=== PATIENT | male | born 1950 | race African-American/Black ===

== ENCOUNTER 2017-04-18 16:50 | Inpatient (IN) | payer OTHER ==
--- NOTE | 2017-04-18 17:26 | DR.H&P ---
H&P - History & Physical for Day of: H&P Date: 04/18/17 - Chief Complaint Chief Complaint: Cough and Congestion, multiple episodes of passing out, intractable pelvic, back and leg pain. - Allergies Allergies/Adverse Reactions: Allergies Allergy/AdvReac Type Severity Reaction Status Date / Time Penicillins Allergy Verified 04/18/17 17:18 tramadol Allergy Verified 04/18/17 17:18 - History of Present Illness History of Present Illness: The patient is a 66-year-old black male who presents to the clinic with complaint of cough and congestion with low-grade fever. States that he was recently in the emergency room name and was told he had pneumonia. Patient was hospitalized in January with pneumonia and stayed for 7 days. Patient states he does get short of breath with simple exertion. States he was told by the hospital to see the pattern worker but they have to set that up. Patient states that he is having episodes of syncope. States he will be standing and then he will pass out. Does have a history of A. fib. states that he has injured his pelvis in his fals and is having excruciating pain that she cannot get relief with his current medications are fentanyl and Romney. They are agreeable for hospital admission. - Past Medical History Past Medical History: Anxiety, Diabetes, Dyslipidemia, GERD, Hypertension Additional Medical History: ATRIAL FIBRILLATION, DDD LUMBAR SPINE WITH HERNATION , LUMBAR RADICULOPATHY, TIA, PVD - Past Surgical History Surgical History: Appendectomy Additional Surgical History: COLONSCOPY - Social History Does patient currently use any type of tobacco product: No Have you used tobacco products in the last 12 months: No Type of Tobacco Use: None Does any household member use tobacco: No Alcohol Use: None Drug Use: None - Review of Systems Constitutional: Fever, Weakness, Malaise Eyes: No Symptoms Reported ENT: No Symptoms Reported Respiratory: Cough, Shortness of Breath, SOB with Excertion, Sputum Cardiovascular: No Symptoms Reported Gastrointestinal: No Symptoms Reported Genitourinary: No Symptoms Reported Musculoskeletal: Back Pain, Leg Pain Skin: No Symptoms Reported Neurological: No Symptoms Reported Oriented: Normal, Time, Person, Place Eyes: Normal Ear: Normal Nose: Normal Throat: Normal Respiratory: Diminished Throughout, SRAVANTHI Rhonchi Cardiovascular: Normal : Normal Auscultation: Bowel Sounds: Normal Palpation: Normal Tenderness: Normal Skin: Normal, Other (PALE) Musculoskeletal: Leg, Back:Lumbar, Tender, Motor Deficit, Instability Psychiatric: Normal Mood Description: Calm Affect: Normal Speech Pattern: Clear - Assessment/Plan (1) Acute bronchitis Qualifiers: Bronchitis organism: B Status: Acute Plan: CXR, LEVAQUIN, LABS, NEBS (2) Syncope and collapse Status: Acute Plan: CT HEAD, O2 SATS, NEURO CHECKS (3) Intractable low back pain Status: Acute Plan: MORPHINE, MRI LUMBAR
[2017-04-18] MEDS ORDERED: TUSSIONEX PENNKINETIC SUSP PO PRN (18:22)
[2017-04-18] MEDS: MORPHINE SULFATE INJ 2 MG IVP PRN ×2 (19:13→23:23)
[2017-04-18 19:21] LABS: BASOPHILS % (AUTO) 0.3 % (0.2-1.0); EOSINOPHILS # (AUTO) 0.1 x10^3/uL (0.0-0.2); EOSINOPHILS % (AUTO) 1.2 % (0.9-2.9); HEMOGLOBIN 10.3 g/dL (13.5-18.0); LYMPHOCYTES # (AUTO) 1.9 X10^3/uL (1.3-2.9); LYMPHOCYTES % (AUTO) 24.5 % (21.0-51.0); MEAN CORPUSCULAR HEMOGLOBIN 26.6 pg (27.0-34.0); MEAN CORPUSCULAR HGB CONC 33.1 g/dL (33.0-35.0); MEAN CORPUSCULAR VOLUME 80.4 fL (80.0-100.0); MEAN PLATELET VOLUME 9.1 fL (7.4-11.0); MONOCYTES # (AUTO) 0.7 x10^3/uL (0.3-0.8); MONOCYTES % (AUTO) 9.8 % (0.0-13.0); NEUTROPHILS # (AUTO) 4.9 x10^3/uL (2.2-4.8); NEUTROPHILS % (AUTO) 64.2 % (42.0-75.0); PLATELET COUNT 276 X10^3/uL (150.0-450.0); RED BLOOD COUNT 3.86 X10^6/uL (4.7-6.0); RED CELL DISTRIBUTION WIDTH 15.5 % (11.6-16.5); WHITE BLOOD COUNT 7.6 X10^3/uL (3.6-10.0)
[2017-04-18 19:34] LABS: ALBUMIN 3.3 g/dL (3.4-5.0); CALCIUM 8.1 mg/dL (8.5-10.1); CARBON DIOXIDE 28.4 mmol/L (21-32); COR CA(FOR HYPOALB) 8.7 mg/dL (8.5-10.1); CREATININE 1.61 mg/dL (0.70-1.30); TOTAL PROTEIN 7.3 g/dL (6.4-8.2)
[2017-04-18] MEDS ORDERED: NS 1/2 1000 ML IV 1,000 ML IV ONE (19:51)
[2017-04-18] MEDS: LEVAQUIN PREMIX IV 750 MG 750 MG/150 ML BAG IV SCH (19:57)
[2017-04-18] MEDS: NS 1/2 1000 ML IV 1,000 ML IV SCH (19:57)
[2017-04-18] MEDS ORDERED: PROVENTIL NEB TX 0.083% 2.5MG/ 3ML NEB PRN (20:04)
[2017-04-18 20:09] LABS: BILIRUBIN,URINE NEGATIVE (NEGATIVE); BLOOD/HEMOGLOBIN,URINE NEGATIVE (NEGATIVE); GLUCOSE, URINE 4+ (NEGATIVE); KETONES,URINE NEGATIVE (NEGATIVE); LEUKOCYTE ESTERASE ,URINE NEGATIVE (NEGATIVE); NITRITES,URINE NEGATIVE (NEGATIVE); PROTEIN,URINE NEGATIVE (NEGATIVE); UROBILINOGEN,URINE NORMAL (NORMAL)
[2017-04-18 20:27] LABS: APPEARANCE,URINE CLEAR (CLEAR); BACTERIA,URINE NEGATIVE /HPF (NEGATIVE); COLOR,URINE YELLOW (YELLOW); RBC,URINE 0-2 /HPF (NEGATIVE); SQUAMOUS EPITHELIAL CELL,UR NEGATIVE /HPF (NEGATIVE)
[2017-04-18] MEDS ORDERED: ZANAFLEX PO ONE (20:35)
[2017-04-18] MEDS: ROBITUSSIN DM PO SCH (20:57)
[2017-04-18] MEDS: ZITHROMAX INJ 500 MG VIAL 500 MG in NS 250 ML IV 250 ML IV SCH (20:57)
[2017-04-18] MEDS: NORCO 10/325 TAB PO PRN (20:57)
[2017-04-18] MEDS: SOLU-Medrol 125 MG VIAL IVP SCH (21:01)
[2017-04-19] MEDS: PROVENTIL NEB TX 0.083% 2.5MG/ 3ML NEB SCH ×4 (00:34→16:18)
[2017-04-19] MEDS: MORPHINE SULFATE INJ 2 MG IVP PRN ×3 (03:44→23:13)
[2017-04-19] MEDS: ZANAFLEX PO PRN ×3 (03:45→19:04)
[2017-04-19] MEDS: NORCO 10/325 TAB PO PRN ×3 (05:44→19:04)
[2017-04-19] MEDS: SOLU-Medrol 125 MG VIAL IVP SCH ×3 (05:44→23:12)
[2017-04-19] MEDS: HumuLIN R SUBCUT PRN ×4 (05:45→20:10)
--- NOTE | 2017-04-19 06:00 | RAD ---
HISTORY: Bronchitis Study: Chest one view Comparison: None Findings: The trachea is midline. The cardiac silhouette is unremarkable. The lungs are clear without focal infiltrate or effusion. The bony thorax is unremarkable. IMPRESSION: 1. No acute cardiopulmonary disease. Reported By:
--- NOTE | 2017-04-19 06:03 | CT ---
HISTORY: Congestion Study: CT chest without contrast Comparison: None Technique: Axial non contrast images with coronal and sagittal reformats. Dose reduction procedures were used with MA/kv adjusted for body size. Findings: Examination of the mediastinum demonstrated a right thyroid lobe nodule for which further evaluation with thyroid sonography is recommended. No mediastinal masses, enlarged lymphadenopathy, or enlarge d hilar adenopathy is identified. Coronary artery calcifications are present. No pleural effusions a re identified. No chest wall or axillary abnormality is identified. Those portions of the upper abdo uri organs are within normal limits with the exception of a 2 centimeter left adrenal nodule for w hich further evaluation with adrenal protocol CT with and without contrast is recommended.3 examinat ion of the lung rene demonstrated no significant nodules, alveolar infiltrates, areas of consolida tion, masses, or bronchiectasis is identified. There is mild peribronchial thickening consistent wit h bronchitis which could be acute, chronic, or both. IMPRESSION: Mild peribronchial thickening consistent with bronchitis which could be acute, chronic, or both. 2 centimeter left adrenal nodule which should be further evaluated with adrenal protocol CT with and without contrast Right thyroid nodule which should be further evaluated with sonography Reported By:
--- NOTE | 2017-04-19 06:08 | CT ---
HISTORY: Right hip pain Study: CT pelvis without contrast Comparison: None Technique: Axial non contrast images with coronal and sagittal reformats. Dose reduction procedures were used with MA/kv adjusted for body size. Findings: Bilateral facet arthropathy is present at L5-S1. There is bilateral SI joint degenerative joint dise ase. The sacrum is intact. The pelvic bones are intact. The hip joints are bilaterally intact. The p roximal femurs are bilaterally intact. No pelvic soft tissue abnormality is identified. No periartic ular soft tissue abnormality is identified. IMPRESSION: No fractures identified Bilateral SI joint degenerative joint disease Bilateral facet degenerative joint disease L5-S1 Reported By:
[2017-04-19] MEDS: LEVAQUIN PREMIX IV 750 MG 750 MG/150 ML BAG IV SCH (08:17)
[2017-04-19] MEDS: ZITHROMAX INJ 500 MG VIAL 500 MG in NS 250 ML IV 250 ML IV SCH (08:18)
[2017-04-19] MEDS: ROBITUSSIN DM PO SCH ×4 (08:18→20:03)
--- NOTE | 2017-04-19 13:02 | MRI ---
HISTORY: Low back pain, right radiculopathy Study: MRI lumbar spine without contrast Comparison: None Technique: Multiplanar multi-sequence MRI of the lumbar spine was obtained. Sagittal T1, sagittal T 2, and stir weighted images, axial T1, and axial T2 images were obtained. Findings: The lumbar spine demonstrates normal alignment with the expected signal characteristics of the bone marrow. The conus of the cord terminates normally. T12 -- L1: No evidence for compressive disc disease. The neural foramina are patent. The joints are normal. L1 -- L2: No evidence for compressive disc disease. The neural foramina are patent. The joints are n ormal. L2 -- L3: No evidence for compressive disc disease. The neural foramina are patent. The joints are n ormal. L3 -- L4: No evidence for compressive disc disease. The neural foramina are patent. Mild bilateral f acet arthropathy is present. L4 -- L5: Circumferential disk bulging contributes along with ligamentous hypertrophy facet arthropa thy and pedicular shortening to a significant spinal stenosis with lateral recess and foraminal narr owing of a significant degree bilaterally. L5 -- S1: No evidence for compressive disc disease. The neural foramina are patent. The joints are n ormal. IMPRESSION: As above Reported By:
[2017-04-19] MEDS ORDERED: ASPIRIN 81 MG CHEWTAB PO SCH (16:00)
[2017-04-19] MEDS ORDERED: GLUCOPHAGE ONE (16:38)
[2017-04-19] MEDS ORDERED: CLARITIN ONE (16:39)
[2017-04-19] MEDS ORDERED: ASPIRIN EC 81 MG PO ONE (16:39)
[2017-04-19] MEDS ORDERED: ZOLOFT PO ONE ×2 (16:40→20:01)
[2017-04-19] MEDS: GLUCOPHAGE PO SCH (16:50)
[2017-04-19] MEDS: ZOLOFT PO SCH ×2 (16:50→20:03)
[2017-04-19] MEDS: LYRICA CAP 100 MG PO SCH ×2 (16:54→20:03)
[2017-04-19] MEDS ORDERED: PLAVIX PO SCH (17:00)
[2017-04-19] MEDS ORDERED: COZAAR PO SCH (17:00)
[2017-04-19] MEDS ORDERED: FERROUS SULFATE PO SCH (17:00)
[2017-04-19] MEDS ORDERED: CLARITIN PO SCH (17:00)
[2017-04-19] MEDS ORDERED: ASPIRIN EC 81 MG PO SCH (17:00)
[2017-04-19] MEDS: CHECK PATCH XX SCH ×2 (17:00→20:04)
[2017-04-19] MEDS ORDERED: ZOFRAN SYRUP 4 MG UDC ONE (17:32)
[2017-04-19] MEDS ORDERED: ZOFRAN SYRUP 4 MG UDC PO PRN (17:34)
[2017-04-19] MEDS: MICRO K EXTEN CAP 10 MEQ PO SCH (17:38)
[2017-04-19] MEDS: LIPITOR TAB 40 MG PO SCH (17:39)
--- NOTE | 2017-04-19 17:41 | US ---
ULTRASOUND OF THE THYROID CLINICAL INDICATION: Thyroid nodules COMPARISON: None PROCEDURE: Grayscale and color images of the thyroid was obtained. Findings: Isthmus: Isthmus measures 3 mm. Right thyroid: Right thyroid lobe measures 3.2 x 2.6 x 2.0 cm. Mixed cystic and solid nodule measuri ng 2.0 x 2.4 cm. Left thyroid: Left thyroid lobe measures 4.2 x 1.3 x 1.7 cm. No suspicious nodules. IMPRESSION: 1. Mixed cystic and solid right thyroid nodule which meets criteria for FNA biopsy. [email or web address].[email or web address]/doi/[email or web address] Reported By:
[2017-04-19] MEDS ORDERED: NS 1/2 1000 ML IV 1,000 ML IV ONE (17:51)
[2017-04-19] MEDS: NS 1/2 1000 ML IV 1,000 ML IV SCH ×2 (17:56→23:18)
[2017-04-19] MEDS: SNACK - Diabetic Appropriate PO SCH (20:03)
[2017-04-19] MEDS ORDERED: SINGULAIR TAB 10 MG PO SCH (21:00)
[2017-04-19] MEDS ORDERED: PATIENT'S HOME MEDICATION (Ondansetron Hcl [Ondansetron Hcl] 1 TAB) PO PRN (22:55)
[2017-04-19] MEDS ORDERED: GLUCOPHAGE PO SCH (23:00)
[2017-04-19] MEDS ORDERED: ZOLOFT PO SCH (23:00)
[2017-04-19] MEDS ORDERED: LYRICA CAP 150 MG PO SCH (23:00)
[2017-04-19] MEDS: PLAVIX PO SCH (23:36)
[2017-04-19] MEDS: COZAAR PO SCH (23:42)
[2017-04-19] MEDS: ZANTAC PO SCH (23:44)
[2017-04-20] MEDS: PROVENTIL NEB TX 0.083% 2.5MG/ 3ML NEB SCH ×3 (00:37→12:13)
[2017-04-20] MEDS: ZOFRAN TAB 4 MG SL PRN ×2 (02:37→20:31)
[2017-04-20] MEDS: NORCO 10/325 TAB PO PRN ×3 (02:37→17:33)
[2017-04-20] MEDS: ZANAFLEX PO PRN ×3 (02:37→17:33)
[2017-04-20 04:27] LABS: BASOPHILS % (AUTO) 0.1 % (0.2-1.0); HEMATOCRIT 28.4 % (42.0-54.0); HEMOGLOBIN 9.5 g/dL (13.5-18.0); LYMPHOCYTES # (AUTO) 0.8 X10^3/uL (1.3-2.9); LYMPHOCYTES % (AUTO) 8.4 % (21.0-51.0); MEAN CORPUSCULAR HEMOGLOBIN 26.7 pg (27.0-34.0); MEAN CORPUSCULAR HGB CONC 33.4 g/dL (33.0-35.0); MEAN CORPUSCULAR VOLUME 80.1 fL (80.0-100.0); MEAN PLATELET VOLUME 9.4 fL (7.4-11.0); MONOCYTES # (AUTO) 0.4 x10^3/uL (0.3-0.8); MONOCYTES % (AUTO) 4.7 % (0.0-13.0); NEUTROPHILS # (AUTO) 8.3 x10^3/uL (2.2-4.8); NEUTROPHILS % (AUTO) 86.8 % (42.0-75.0); PLATELET COUNT 267 X10^3/uL (150.0-450.0); RED BLOOD COUNT 3.54 X10^6/uL (4.7-6.0); RED CELL DISTRIBUTION WIDTH 15.6 % (11.6-16.5); WHITE BLOOD COUNT 9.6 X10^3/uL (3.6-10.0)
[2017-04-20 04:37] LABS: ALANINE AMINOTRANSFERASE 18 Units/L (12-78); ALBUMIN 3.2 g/dL (3.4-5.0); ALKALINE PHOSPHATASE 107 Units/L (46-116); ASPARTATE AMINO TRANSFERASE 18 Units/L (15-37); BLOOD UREA NITROGEN 26 mg/dL (7-18); CALCIUM 8.4 mg/dL (8.5-10.1); CARBON DIOXIDE 23.7 mmol/L (21-32); CHLORIDE 106 mmol/L (98-107); COR NA(FOR HYPERGLY) 144 mmol/L (136-145); CREATININE 1.31 mg/dL (0.70-1.30); GLUCOSE 289 mg/dL (65-99); SODIUM 139 mmol/L (136-145); TOTAL PROTEIN 7.1 g/dL (6.4-8.2); eGFR BLACK RACES > 60 (>60); eGFR NON BLACK RACES 59 (>60)
[2017-04-20] MEDS ORDERED: GLUCOPHAGE ONE ×2 (05:36→17:26)
[2017-04-20] MEDS ORDERED: NS 1/2 1000 ML IV 1,000 ML IV ONE (05:38)
[2017-04-20] MEDS: MORPHINE SULFATE INJ 2 MG IVP PRN ×3 (05:43→20:18)
[2017-04-20] MEDS: NS 1/2 1000 ML IV 1,000 ML IV SCH ×2 (05:43→20:54)
[2017-04-20] MEDS: FERROUS SULFATE PO SCH ×3 (05:44→21:12)
[2017-04-20] MEDS: HumuLIN R SUBCUT PRN ×4 (05:44→21:12)
[2017-04-20] MEDS: SOLU-Medrol 125 MG VIAL IVP SCH ×3 (05:44→21:12)
[2017-04-20] MEDS: GLUCOPHAGE PO SCH ×2 (06:07→17:25)
[2017-04-20] MEDS ORDERED: ASPIRIN EC 81 MG PO SCH (09:00)
[2017-04-20] MEDS ORDERED: PATIENT'S HOME MEDICATION (Potassium Chloride [Klor-Con 10] 1 TAB) PO SCH (09:00)
[2017-04-20] MEDS ORDERED: ZOLOFT PO ONE ×2 (09:05→19:58)
[2017-04-20] MEDS: LYRICA CAP 100 MG PO SCH ×2 (09:24→20:17)
[2017-04-20] MEDS: ZANTAC PO SCH (09:24)
[2017-04-20] MEDS: ROBITUSSIN DM PO SCH ×4 (09:25→20:19)
[2017-04-20] MEDS: COZAAR PO SCH (09:25)
[2017-04-20] MEDS: LIPITOR TAB 40 MG PO SCH (09:25)
[2017-04-20] MEDS: CLARITIN PO SCH (09:25)
[2017-04-20] MEDS: ASPIRIN EC 81 MG PO SCH (09:25)
[2017-04-20] MEDS: MICRO K EXTEN CAP 10 MEQ PO SCH (09:25)
[2017-04-20] MEDS: ZOLOFT PO SCH ×2 (09:25→20:18)
[2017-04-20] MEDS: PLAVIX PO SCH (09:26)
[2017-04-20] MEDS: ZITHROMAX INJ 500 MG VIAL 500 MG in NS 250 ML IV 250 ML IV SCH (09:26)
[2017-04-20] MEDS: LASIX PO SCH (09:26)
[2017-04-20] MEDS: LEVAQUIN PREMIX IV 750 MG 750 MG/150 ML BAG IV SCH (09:27)
[2017-04-20] MEDS: CHECK PATCH XX SCH ×2 (09:33→20:19)
[2017-04-20] MEDS: VISTARIL PO PRN ×2 (12:04→20:17)
[2017-04-20] MEDS: XOPENEX 1.25 MG/3 ML NEBULE NEB SCH (17:19)
[2017-04-20] MEDS: DESYREL PO PRN (20:18)
[2017-04-20] MEDS: SNACK - Diabetic Appropriate PO SCH (20:19)
[2017-04-20] MEDS: SINGULAIR TAB 10 MG PO SCH (20:20)
[2017-04-20] MEDS ORDERED: PATIENT'S HOME MEDICATION (Atorvastatin Calcium [Atorvastatin Calcium] 1 TAB) PO SCH (21:00)
[2017-04-21] MEDS: XOPENEX 1.25 MG/3 ML NEBULE NEB SCH ×5 (00:38→20:59)
[2017-04-21] MEDS: NORCO 10/325 TAB PO PRN ×4 (01:15→22:12)
[2017-04-21] MEDS: ZANAFLEX PO PRN ×4 (01:17→22:12)
[2017-04-21] MEDS ORDERED: NS 1/2 1000 ML IV 1,000 ML IV ONE ×2 (02:57→20:00)
[2017-04-21] MEDS: NS 1/2 1000 ML IV 1,000 ML IV SCH ×3 (03:04→20:10)
[2017-04-21] MEDS ORDERED: GLUCOPHAGE ONE ×2 (05:38→16:17)
[2017-04-21] MEDS: SOLU-Medrol 125 MG VIAL IVP SCH ×3 (05:44→21:00)
[2017-04-21] MEDS: VISTARIL PO PRN ×3 (05:44→20:10)
[2017-04-21] MEDS: HumuLIN R SUBCUT PRN ×4 (05:44→20:12)
[2017-04-21] MEDS: FERROUS SULFATE PO SCH ×3 (05:44→21:01)
[2017-04-21 05:46] LABS: BASOPHILS % (AUTO) 0.2 % (0.2-1.0); HEMATOCRIT 28.6 % (42.0-54.0); HEMOGLOBIN 9.6 g/dL (13.5-18.0); LYMPHOCYTES % (AUTO) 10.8 % (21.0-51.0); MEAN CORPUSCULAR HGB CONC 33.4 g/dL (33.0-35.0); MEAN CORPUSCULAR VOLUME 80.9 fL (80.0-100.0); MEAN PLATELET VOLUME 9.2 fL (7.4-11.0); MONOCYTES # (AUTO) 0.7 x10^3/uL (0.3-0.8); MONOCYTES % (AUTO) 7.1 % (0.0-13.0); NEUTROPHILS # (AUTO) 7.8 x10^3/uL (2.2-4.8); NEUTROPHILS % (AUTO) 81.9 % (42.0-75.0); PLATELET COUNT 259 X10^3/uL (150.0-450.0); RED BLOOD COUNT 3.53 X10^6/uL (4.7-6.0); RED CELL DISTRIBUTION WIDTH 15.7 % (11.6-16.5); WHITE BLOOD COUNT 9.5 X10^3/uL (3.6-10.0)
[2017-04-21 05:51] LABS: ALANINE AMINOTRANSFERASE 19 Units/L (12-78); ALBUMIN 3.2 g/dL (3.4-5.0); ALKALINE PHOSPHATASE 113 Units/L (46-116); ASPARTATE AMINO TRANSFERASE 20 Units/L (15-37); BLOOD UREA NITROGEN 27 mg/dL (7-18); CALCIUM 8.3 mg/dL (8.5-10.1); CARBON DIOXIDE 25.4 mmol/L (21-32); CHLORIDE 107 mmol/L (98-107); COR CA(FOR HYPOALB) 8.9 mg/dL (8.5-10.1); COR NA(FOR HYPERGLY) 143 mmol/L (136-145); CREATININE 1.37 mg/dL (0.70-1.30); GLUCOSE 256 mg/dL (65-99); SODIUM 139 mmol/L (136-145); eGFR BLACK RACES > 60 (>60); eGFR NON BLACK RACES 56 (>60)
[2017-04-21] MEDS: MORPHINE SULFATE INJ 2 MG IVP PRN ×3 (06:02→18:39)
[2017-04-21] MEDS: GLUCOPHAGE PO SCH ×2 (06:02→16:24)
[2017-04-21] MEDS ORDERED: ZOLOFT PO ONE ×2 (08:33→19:58)
[2017-04-21] MEDS: MICRO K EXTEN CAP 10 MEQ PO SCH (08:40)
[2017-04-21] MEDS: LYRICA CAP 100 MG PO SCH ×2 (08:40→20:11)
[2017-04-21] MEDS: ZOLOFT PO SCH ×2 (08:40→20:11)
[2017-04-21] MEDS: CLARITIN PO SCH (08:40)
[2017-04-21] MEDS: PLAVIX PO SCH (08:41)
[2017-04-21] MEDS: ASPIRIN EC 81 MG PO SCH (08:41)
[2017-04-21] MEDS: LIPITOR TAB 40 MG PO SCH (08:41)
[2017-04-21] MEDS: ZANTAC PO SCH (08:41)
[2017-04-21] MEDS: LASIX PO SCH (08:41)
[2017-04-21] MEDS: COZAAR PO SCH (08:41)
[2017-04-21] MEDS: ZITHROMAX INJ 500 MG VIAL 500 MG in NS 250 ML IV 250 ML IV SCH (08:42)
[2017-04-21] MEDS: ROBITUSSIN DM PO SCH ×4 (08:42→20:11)
[2017-04-21] MEDS: LEVAQUIN PREMIX IV 750 MG 750 MG/150 ML BAG IV SCH (08:42)
[2017-04-21] MEDS: CHECK PATCH XX SCH ×2 (08:47→20:11)
[2017-04-21] MEDS: SNACK - Diabetic Appropriate PO SCH (20:11)
[2017-04-21] MEDS: ZOFRAN TAB 4 MG SL PRN (20:11)
[2017-04-21] MEDS: SINGULAIR TAB 10 MG PO SCH (20:11)
[2017-04-21] MEDS: DESYREL PO PRN (20:13)
[2017-04-21] MEDS: ROCEPHIN VIAL 1 GM 1 GM in NS 50 ML IV + SPIKE MINIBAG* 50 ML IV SCH (21:01)
[2017-04-21] MEDS: LOPRESSOR TAB 25 MG PO SCH (22:10)
[2017-04-22] MEDS: VISTARIL PO PRN ×3 (04:12→22:56)
[2017-04-22] MEDS: MORPHINE SULFATE INJ 2 MG IVP PRN ×3 (04:13→20:11)
[2017-04-22] MEDS: ZOFRAN TAB 4 MG SL PRN ×2 (04:17→20:08)
[2017-04-22 04:46] LABS: BASOPHILS % (AUTO) 0.1 % (0.2-1.0); HEMATOCRIT 29.8 % (42.0-54.0); HEMOGLOBIN 9.9 g/dL (13.5-18.0); LYMPHOCYTES # (AUTO) 1.1 X10^3/uL (1.3-2.9); LYMPHOCYTES % (AUTO) 10.5 % (21.0-51.0); MEAN CORPUSCULAR HGB CONC 33.3 g/dL (33.0-35.0); MEAN CORPUSCULAR VOLUME 81.1 fL (80.0-100.0); MEAN PLATELET VOLUME 9.3 fL (7.4-11.0); MONOCYTES % (AUTO) 9.3 % (0.0-13.0); NEUTROPHILS # (AUTO) 8.7 x10^3/uL (2.2-4.8); NEUTROPHILS % (AUTO) 80.1 % (42.0-75.0); PLATELET COUNT 254 X10^3/uL (150.0-450.0); RED BLOOD COUNT 3.68 X10^6/uL (4.7-6.0); RED CELL DISTRIBUTION WIDTH 15.5 % (11.6-16.5); WHITE BLOOD COUNT 10.9 X10^3/uL (3.6-10.0)
[2017-04-22 04:59] LABS: ALANINE AMINOTRANSFERASE 20 Units/L (12-78); ALBUMIN 3.1 g/dL (3.4-5.0); ALKALINE PHOSPHATASE 170 Units/L (46-116); ASPARTATE AMINO TRANSFERASE 19 Units/L (15-37); BLOOD UREA NITROGEN 29 mg/dL (7-18); CALCIUM 8.1 mg/dL (8.5-10.1); CARBON DIOXIDE 26.7 mmol/L (21-32); CHLORIDE 107 mmol/L (98-107); COR CA(FOR HYPOALB) 8.8 mg/dL (8.5-10.1); COR NA(FOR HYPERGLY) 143 mmol/L (136-145); CREATININE 1.35 mg/dL (0.70-1.30); GLUCOSE 266 mg/dL (65-99); SODIUM 139 mmol/L (136-145); TOTAL PROTEIN 6.8 g/dL (6.4-8.2); eGFR BLACK RACES > 60 (>60); eGFR NON BLACK RACES 57 (>60)
[2017-04-22] MEDS ORDERED: GLUCOPHAGE ONE ×2 (05:38→16:33)
[2017-04-22] MEDS: FERROUS SULFATE PO SCH ×3 (05:42→21:01)
[2017-04-22] MEDS: HumuLIN R SUBCUT PRN ×4 (05:42→21:01)
[2017-04-22] MEDS: NS 1/2 1000 ML IV 1,000 ML IV SCH ×3 (05:43→20:10)
[2017-04-22] MEDS: GLUCOPHAGE PO SCH ×2 (06:05→16:46)
--- NOTE | 2017-04-22 06:58 | RAD ---
HISTORY: Bronchitis Study: Chest two-view Comparison: April 18, 2017 CT chest and plain film Findings: The heart is within normal limits in size. The erasto are normal. The lungs are free of acute alveolar infiltrates. No pleural effusions are identified. There is some subsegmental atelectasis in the lef t lung base. No pleural effusions are identified. The bony thorax is unremarkable. IMPRESSION: Subsegmental atelectasis left lung base Reported By:
[2017-04-22] MEDS ORDERED: ZOLOFT PO ONE ×2 (07:33→19:57)
[2017-04-22] MEDS: SOLU-Medrol 40 MG VIAL IVP SCH ×2 (08:44→20:10)
[2017-04-22] MEDS: ROCEPHIN VIAL 1 GM 1 GM in NS 50 ML IV + SPIKE MINIBAG* 50 ML IV SCH (08:46)
[2017-04-22] MEDS: LYRICA CAP 100 MG PO SCH ×2 (08:48→20:08)
[2017-04-22] MEDS: CLARITIN PO SCH (08:48)
[2017-04-22] MEDS: ROBITUSSIN DM PO SCH ×4 (08:48→20:08)
[2017-04-22] MEDS: ASPIRIN EC 81 MG PO SCH (08:48)
[2017-04-22] MEDS: COZAAR PO SCH (08:48)
[2017-04-22] MEDS: ZANTAC PO SCH (08:49)
[2017-04-22] MEDS: MICRO K EXTEN CAP 10 MEQ PO SCH (08:49)
[2017-04-22] MEDS: ZOLOFT PO SCH ×2 (08:49→20:08)
[2017-04-22] MEDS: LASIX PO SCH (08:49)
[2017-04-22] MEDS: LOPRESSOR TAB 25 MG PO SCH ×2 (08:49→20:08)
[2017-04-22] MEDS: LIPITOR TAB 40 MG PO SCH (08:49)
[2017-04-22] MEDS: CHECK PATCH XX SCH ×2 (08:50→20:10)
[2017-04-22] MEDS: PLAVIX PO SCH (08:51)
[2017-04-22] MEDS: ZITHROMAX INJ 500 MG VIAL 500 MG in NS 250 ML IV 250 ML IV SCH ×2 (08:54→09:27)
[2017-04-22] MEDS: XOPENEX 1.25 MG/3 ML NEBULE NEB SCH ×4 (09:37→21:03)
[2017-04-22] MEDS ORDERED: NS 1/2 1000 ML IV 1,000 ML IV ONE (11:00)
[2017-04-22] MEDS: NORCO 10/325 TAB PO PRN ×3 (11:03→22:56)
[2017-04-22] MEDS: ZANAFLEX PO PRN ×3 (11:03→22:56)
--- NOTE | 2017-04-22 13:43 | PCM.PROG ---
Progress Note - Progress Note for Day of Date: 04/22/17 - Subjective Subjective: the patient is a 66-year-old black male who was admitted with acute bronchitis and intractable lower extremity numbness and lumbar spine pain. Patient sputum was positive for Escherichia coli, sensitive to IV antibiotics. Plan to continue IV antibiotics and respiratory therapy. Patient had diffuse rhonchi on exam this morning. Patient has a history of PAD, and is currently on Plavix. We plan to continue pain control for her lumbar spine pain and when bronchitis has stabilized we will recommend rehabilitation therapy at [facility] - Past Medical Family Social History Past Med/Fam/Surg Hx: No changes since H&P Allergies: Allergies Penicillins Allergy (Verified 04/18/17 17:18) tramadol Allergy (Verified 04/18/17 17:18) - Review of Systems ROS: No change since H&P - Vital Signs and I&O's Vital Signs: Temperature 97.1 F Pulse Rate [Right Brachial] 91 Pulse Rate [Left Radial] 94 Pulse Rate 86 Respiratory Rate 18 Blood Pressure [Right Arm] 155/84 Blood Pressure 132/72 O2 Sat by Pulse Oximetry 99 Intake and Output: Intake & Output 04/20/17 04/21/17 04/22/17 04/23/17 11:59 11:59 11:59 11:59 Intake Total 2753 3098 2458 Output Total 1500 1050 2100 Balance 1253 2048 358 - Physical Exam Oriented: Normal, Time, Person, Place Eyes: Normal Ear: Normal Nose: Normal Throat: Normal Respiratory: Rhonchi Cardiovascular: Normal : Normal Auscultation: Bowel Sounds: Normal Tenderness: Normal Skin: Normal, Other (PALE) Musculoskeletal: Leg, Back:Lumbar, Tender, Motor Deficit, Instability Psychiatric: Normal Mood Description: Calm Affect: Normal Speech Pattern: Clear, Appropriate - Laboratory and Diagnostics Result Diagrams: 04/22/17 04:25 04/22/17 04:25 Labs: 04/19/17 01:30 Sputum - Expectorated Sputum Sputum Culture - Final Escherichia Coli 04/19/17 01:30 Sputum - Expectorated Sputum - Final 04/18/17 18:40 Blood Blood Culture - Preliminary 04/18/17 18:35 Blood Blood Culture - Preliminary Laboratory WBC 10.9 X10^3/uL (3.6-10.0) H 04/22/17 04:25 RBC 3.68 X10^6/uL (4.7-6.0) L 04/22/17 04:25 Hgb 9.9 g/dL (13.5-18.0) L 04/22/17 04:25 Hct 29.8 % (42.0-54.0) L 04/22/17 04:25 MCV 81.1 fL (80.0-100.0) 04/22/17 04:25 MCH 27.0 pg (27.0-34.0) 04/22/17 04:25 MCHC 33.3 g/dL (33.0-35.0) 04/22/17 04:25 RDW 15.5 % (11.6-16.5) 04/22/17 04:25 Plt Count 254 X10^3/uL (150.0-450.0) 04/22/17 04:25 MPV 9.3 fL (7.4-11.0) 04/22/17 04:25 Neut % 80.1 % (42.0-75.0) H 04/22/17 04:25 Lymph % 10.5 % (21.0-51.0) L 04/22/17 04:25 [place] % 9.3 % (0.0-13.0) 04/22/17 04:25 Eos % 0.0 % (0.9-2.9) L 04/22/17 04:25 Baso % 0.1 % (0.2-1.0) L 04/22/17 04:25 Neut # 8.7 x10^3/uL (2.2-4.8) H 04/22/17 04:25 Lymph # 1.1 X10^3/uL (1.3-2.9) L 04/22/17 04:25 [place] # 1.0 x10^3/uL (0.3-0.8) H 04/22/17 04:25 Eos # 0.0 x10^3/uL (0.0-0.2) 04/22/17 04:25 Baso # 0.0 X10^3/uL (0.0-0.1) 04/22/17 04:25 Absolute Nucleated RBC 0.0 /100WBC 04/22/17 04:25 Sodium 139 mmol/L (136-145) 04/22/17 04:25 Corrected Sodium 143 mmol/L (136-145) 04/22/17 04:25 Potassium 4.3 mmol/L (3.5-5.1) 04/22/17 04:25 Chloride 107 mmol/L (98-107) 04/22/17 04:25 Carbon Dioxide 26.7 mmol/L (21-32) 04/22/17 04:25 BUN 29 mg/dL (7-18) H 04/22/17 04:25 Creatinine 1.35 mg/dL (0.70-1.30) H 04/22/17 04:25 Est GFR (MDRD) Af Amer > 60 (>60) 04/22/17 04:25 Est GFR (MDRD) Non-Af 57 (>60) L 04/22/17 04:25 Glucose 266 mg/dL (65-99) H 04/22/17 04:25 Calcium 8.1 mg/dL (8.5-10.1) L 04/22/17 04:25 Corrected Calcium 8.8 mg/dL (8.5-10.1) 04/22/17 04:25 Total Bilirubin 0.20 mg/dL (0.2-1.0) 04/22/17 04:25 AST 19 Units/L (15-37) 04/22/17 04:25 ALT 20 Units/L (12-78) 04/22/17 04:25 Alkaline Phosphatase 170 Units/L (46-116) H 04/22/17 04:25 Total Protein 6.8 g/dL (6.4-8.2) 04/22/17 04:25 Albumin 3.1 g/dL (3.4-5.0) L 04/22/17 04:25 Globulin 3.7 g/dL (2.5-4.5) 04/22/17 04:25 Albumin/Globulin Ratio 0.8 Ratio (1.1-2.1) L 04/22/17 04:25 Specimen Type Clean catch urine 04/18/17 19:09 Urine Color Yellow (YELLOW) 04/18/17 19:09 Urine Appearance Clear (CLEAR) 04/18/17 19:09 Urine pH 5.0 (5.0 - 8.0) 04/18/17 19:09 Ur Specific [place] 1.015 (1.000-1.030) 04/18/17 19:09 Urine Protein Negative (NEGATIVE) 04/18/17 19:09 Urine Glucose (UA) 4+ (NEGATIVE) 04/18/17 19:09 Urine Ketones Negative (NEGATIVE) 04/18/17 19:09 Urine Occult Blood Negative (NEGATIVE) 04/18/17 19:09 Urine Nitrite Negative (NEGATIVE) 04/18/17 19:09 Urine Bilirubin Negative (NEGATIVE) 04/18/17 19:09 Urine Urobilinogen Normal (NORMAL) 04/18/17 19:09 Ur Leukocyte Esterase Negative (NEGATIVE) 04/18/17 19:09 Urine RBC 0-2 /HPF (NEGATIVE) 04/18/17 19:09 Urine WBC 0-2 /HPF (NEGATIVE) 04/18/17 19:09 Ur Squamous Epith Cells Negative /HPF (NEGATIVE) 04/18/17 19:09 Urine Bacteria Negative /HPF (NEGATIVE) 04/18/17 19:09 Ur Culture Indicated? No/not indicated 04/18/17 19:09 - Plan (1) Acute bronchitis Status: Acute Qualifiers: Bronchitis organism: B Plan: reports improved sputum production this morning, continued diffuse rhonchi on exam. Plan to continue IV antibiotics and respiratory therapy (2) Hypertension Status: Acute Qualifiers: Hypertension type: H Plan: resume Lopressor 25 twice a day, continue losartan and blood pressure monitoring (3) Lumbosacral radiculopathy due to degenerative joint disease of spine Status: Acute Plan: continued low back pain, impaired gait and mobility. Plan to discharge to [facility] for physical therapy after resolution of bronchitis (4) Degenerative joint disease (DJD) of lumbar spine Status: Acute Qualifiers: Spinal osteoarthritis complication: S
[2017-04-22] MEDS: SINGULAIR TAB 10 MG PO SCH (20:08)
[2017-04-22] MEDS: DESYREL PO PRN (20:08)
[2017-04-22] MEDS: SNACK - Diabetic Appropriate PO SCH (20:10)
[2017-04-22] MEDS ORDERED: LOPRESSOR TAB 25 MG PO SCH (21:47)
[2017-04-23] MEDS ORDERED: NS 1/2 1000 ML IV 1,000 ML IV ONE ×2 (02:26→20:27)
[2017-04-23] MEDS: MORPHINE SULFATE INJ 2 MG IVP PRN ×3 (02:35→13:59)
[2017-04-23] MEDS: ZOFRAN TAB 4 MG SL PRN ×2 (02:36→20:15)
[2017-04-23 05:28] LABS: ALANINE AMINOTRANSFERASE 28 Units/L (12-78); ALBUMIN 3.4 g/dL (3.4-5.0); ALKALINE PHOSPHATASE 121 Units/L (46-116); ASPARTATE AMINO TRANSFERASE 27 Units/L (15-37); BLOOD UREA NITROGEN 31 mg/dL (7-18); CALCIUM 8.4 mg/dL (8.5-10.1); CARBON DIOXIDE 26.9 mmol/L (21-32); CHLORIDE 107 mmol/L (98-107); CREATININE 1.25 mg/dL (0.70-1.30); GLUCOSE 76 mg/dL (65-99); SODIUM 142 mmol/L (136-145); TOTAL PROTEIN 7.2 g/dL (6.4-8.2); eGFR BLACK RACES > 60 (>60); eGFR NON BLACK RACES > 60 (>60)
[2017-04-23] MEDS ORDERED: GLUCOPHAGE ONE ×2 (05:42→17:52)
[2017-04-23] MEDS: FERROUS SULFATE PO SCH ×3 (05:44→21:42)
[2017-04-23] MEDS: NORCO 10/325 TAB PO PRN ×2 (05:44→20:15)
[2017-04-23] MEDS: ZANAFLEX PO PRN ×3 (05:44→20:15)
[2017-04-23 05:46] LABS: BASOPHILS % (AUTO) 0.1 % (0.2-1.0); HEMATOCRIT 30.4 % (42.0-54.0); HEMOGLOBIN 10.1 g/dL (13.5-18.0); LYMPHOCYTES # (AUTO) 1.7 X10^3/uL (1.3-2.9); LYMPHOCYTES % (AUTO) 14.4 % (21.0-51.0); MEAN CORPUSCULAR HEMOGLOBIN 26.7 pg (27.0-34.0); MEAN CORPUSCULAR HGB CONC 33.4 g/dL (33.0-35.0); MEAN CORPUSCULAR VOLUME 80.1 fL (80.0-100.0); MEAN PLATELET VOLUME 9.4 fL (7.4-11.0); MONOCYTES # (AUTO) 1.1 x10^3/uL (0.3-0.8); MONOCYTES % (AUTO) 9.2 % (0.0-13.0); NEUTROPHILS # (AUTO) 9.2 x10^3/uL (2.2-4.8); NEUTROPHILS % (AUTO) 76.3 % (42.0-75.0); PLATELET COUNT 284 X10^3/uL (150.0-450.0); RED CELL DISTRIBUTION WIDTH 15.9 % (11.6-16.5)
[2017-04-23] MEDS: NS 1/2 1000 ML IV 1,000 ML IV SCH ×3 (05:48→20:27)
[2017-04-23] MEDS: GLUCOPHAGE PO SCH ×2 (06:09→17:56)
[2017-04-23] MEDS ORDERED: ZOLOFT PO ONE ×3 (08:10→20:20)
[2017-04-23] MEDS: ROCEPHIN VIAL 1 GM 1 GM in NS 50 ML IV + SPIKE MINIBAG* 50 ML IV SCH (08:17)
[2017-04-23] MEDS: LIPITOR TAB 40 MG PO SCH (08:18)
[2017-04-23] MEDS: LASIX PO SCH (08:18)
[2017-04-23] MEDS: COZAAR PO SCH (08:18)
[2017-04-23] MEDS: LOPRESSOR TAB 25 MG PO SCH ×2 (08:18→20:15)
[2017-04-23] MEDS: CLARITIN PO SCH (08:18)
[2017-04-23] MEDS: ASPIRIN EC 81 MG PO SCH (08:18)
[2017-04-23] MEDS: ZOLOFT PO SCH ×2 (08:19→20:22)
[2017-04-23] MEDS: CHECK PATCH XX SCH ×2 (08:19→20:16)
[2017-04-23] MEDS: MICRO K EXTEN CAP 10 MEQ PO SCH (08:19)
[2017-04-23] MEDS: ROBITUSSIN DM PO SCH ×4 (08:20→20:14)
[2017-04-23] MEDS: LYRICA CAP 100 MG PO SCH ×2 (08:21→20:14)
[2017-04-23] MEDS: PLAVIX PO SCH (08:21)
[2017-04-23] MEDS: ZANTAC PO SCH (08:27)
[2017-04-23] MEDS: VISTARIL PO PRN (08:27)
[2017-04-23] MEDS: XOPENEX 1.25 MG/3 ML NEBULE NEB SCH ×4 (09:02→21:11)
--- NOTE | 2017-04-23 10:18 | PCM.PROG ---
Progress Note - Progress Note for Day of Date: 04/23/17 - Subjective Subjective: the patient is a 66-year-old black male who was admitted with acute bronchitis and intractable lower extremity numbness and lumbar spine pain. Patient sputum was positive for Escherichia coli, sensitive to IV antibiotics. Plan to continue IV antibiotics and respiratory therapy. Patient had diffuse rhonchi on exam this morning. Consult resp for mucomyst [email or web address] has a history of PAD, and is currently on Plavix. Pts renal function in much improved from admission, will CTA lower extremities to r/o arterial occlusion We plan to continue pain control for her lumbar spine pain and when bronchitis has stabilized we will recommend rehabilitation therapy at [facility] - Past Medical Family Social History Past Med/Fam/Surg Hx: No changes since H&P Allergies: Allergies Penicillins Allergy (Verified 04/18/17 17:18) tramadol Allergy (Verified 04/18/17 17:18) - Review of Systems ROS: No change since H&P - Vital Signs and I&O's Vital Signs: Temperature 97.7 F Pulse Rate [Right Brachial] 81 Pulse Rate [Left Radial] 94 Pulse Rate 73 Respiratory Rate 15 Blood Pressure [Right Arm] 162/85 Blood Pressure 132/72 O2 Sat by Pulse Oximetry 99 Intake and Output: Intake & Output 04/20/17 04/21/17 04/22/17 04/23/17 11:59 11:59 11:59 11:59 Intake Total 2753 3098 2458 3535 Output Total 1500 1050 2100 1775 Balance 1253 2048 358 1760 - Physical Exam Oriented: Normal, Time, Person, Place Eyes: Normal Ear: Normal Nose: Normal Throat: Normal Respiratory: Rhonchi Cardiovascular: Normal : Normal Auscultation: Bowel Sounds: Normal Tenderness: Normal Skin: Normal, Other (PALE) Musculoskeletal: Leg, Back:Lumbar, Tender, Motor Deficit, Instability Psychiatric: Normal Mood Description: Calm Affect: Normal Speech Pattern: Clear, Appropriate - Laboratory and Diagnostics Result Diagrams: 04/23/17 04:45 04/23/17 04:45 Labs: 04/19/17 01:30 Sputum - Expectorated Sputum Sputum Culture - Final Escherichia Coli 04/19/17 01:30 Sputum - Expectorated Sputum - Final 04/18/17 18:40 Blood Blood Culture - Preliminary 04/18/17 18:35 Blood Blood Culture - Preliminary Laboratory WBC 12.0 X10^3/uL (3.6-10.0) H 04/23/17 04:45 RBC 3.80 X10^6/uL (4.7-6.0) L 04/23/17 04:45 Hgb 10.1 g/dL (13.5-18.0) L 04/23/17 04:45 Hct 30.4 % (42.0-54.0) L 04/23/17 04:45 MCV 80.1 fL (80.0-100.0) 04/23/17 04:45 MCH 26.7 pg (27.0-34.0) L 04/23/17 04:45 MCHC 33.4 g/dL (33.0-35.0) 04/23/17 04:45 RDW 15.9 % (11.6-16.5) 04/23/17 04:45 Plt Count 284 X10^3/uL (150.0-450.0) 04/23/17 04:45 MPV 9.4 fL (7.4-11.0) 04/23/17 04:45 Neut % 76.3 % (42.0-75.0) H 04/23/17 04:45 Lymph % 14.4 % (21.0-51.0) L 04/23/17 04:45 [place] % 9.2 % (0.0-13.0) 04/23/17 04:45 Eos % 0.0 % (0.9-2.9) L 04/23/17 04:45 Baso % 0.1 % (0.2-1.0) L 04/23/17 04:45 Neut # 9.2 x10^3/uL (2.2-4.8) H 04/23/17 04:45 Lymph # 1.7 X10^3/uL (1.3-2.9) 04/23/17 04:45 [place] # 1.1 x10^3/uL (0.3-0.8) H 04/23/17 04:45 Eos # 0.0 x10^3/uL (0.0-0.2) 04/23/17 04:45 Baso # 0.0 X10^3/uL (0.0-0.1) 04/23/17 04:45 Absolute Nucleated RBC 0.1 /100WBC 04/23/17 04:45 Sodium 142 mmol/L (136-145) 04/23/17 04:45 Corrected Sodium TNP 04/23/17 04:45 Potassium 3.8 mmol/L (3.5-5.1) 04/23/17 04:45 Chloride 107 mmol/L (98-107) 04/23/17 04:45 Carbon Dioxide 26.9 mmol/L (21-32) 04/23/17 04:45 BUN 31 mg/dL (7-18) H 04/23/17 04:45 Creatinine 1.25 mg/dL (0.70-1.30) 04/23/17 04:45 Est GFR (MDRD) Af Amer > 60 (>60) 04/23/17 04:45 Est GFR (MDRD) Non-Af > 60 (>60) 04/23/17 04:45 Glucose 76 mg/dL (65-99) 04/23/17 04:45 Calcium 8.4 mg/dL (8.5-10.1) L 04/23/17 04:45 Corrected Calcium TNP 04/23/17 04:45 Total Bilirubin 0.30 mg/dL (0.2-1.0) 04/23/17 04:45 AST 27 Units/L (15-37) 04/23/17 04:45 ALT 28 Units/L (12-78) 04/23/17 04:45 Alkaline Phosphatase 121 Units/L (46-116) H 04/23/17 04:45 Total Protein 7.2 g/dL (6.4-8.2) 04/23/17 04:45 Albumin 3.4 g/dL (3.4-5.0) 04/23/17 04:45 Globulin 3.8 g/dL (2.5-4.5) 04/23/17 04:45 Albumin/Globulin Ratio 0.9 Ratio (1.1-2.1) L 04/23/17 04:45 Specimen Type Clean catch urine 04/18/17 19:09 Urine Color Yellow (YELLOW) 04/18/17 19:09 Urine Appearance Clear (CLEAR) 04/18/17 19:09 Urine pH 5.0 (5.0 - 8.0) 04/18/17 19:09 Ur Specific [place] 1.015 (1.000-1.030) 04/18/17 19:09 Urine Protein Negative (NEGATIVE) 04/18/17 19:09 Urine Glucose (UA) 4+ (NEGATIVE) 04/18/17 19:09 Urine Ketones Negative (NEGATIVE) 04/18/17 19:09 Urine Occult Blood Negative (NEGATIVE) 04/18/17 19:09 Urine Nitrite Negative (NEGATIVE) 04/18/17 19:09 Urine Bilirubin Negative (NEGATIVE) 04/18/17 19:09 Urine Urobilinogen Normal (NORMAL) 04/18/17 19:09 Ur Leukocyte Esterase Negative (NEGATIVE) 04/18/17 19:09 Urine RBC 0-2 /HPF (NEGATIVE) 04/18/17 19:09 Urine WBC 0-2 /HPF (NEGATIVE) 04/18/17 19:09 Ur Squamous Epith Cells Negative /HPF (NEGATIVE) 04/18/17 19:09 Urine Bacteria Negative /HPF (NEGATIVE) 04/18/17 19:09 Ur Culture Indicated? No/not indicated 04/18/17 19:09 - Plan (1) Acute bronchitis Status: Acute Qualifiers: Bronchitis organism: B Plan: reports improved sputum production this morning, continued diffuse rhonchi on exam, add mucomyst to nebs, encourage oral hydration and gentle percussion. Plan to continue IV antibiotics and respiratory therapy (2) Hypertension Status: Acute Qualifiers: Hypertension type: unspecified secondary hypertension Qualified Code(s): I15.9 - Secondary hypertension, unspecified; I15 - Secondary hypertension Plan: resume Lopressor 25 twice a day, continue losartan and blood pressure monitoring (3) Lumbosacral radiculopathy due to degenerative joint disease of spine Status: Acute Plan: continued low back pain, impaired gait and mobility. Plan to discharge to [facility] for physical therapy after resolution of bronchitis (4) Degenerative joint disease (DJD) of lumbar spine Status: Acute Qualifiers: Spinal osteoarthritis complication: S
[2017-04-23] MEDS ORDERED: HALDOL INJ IVP ONE (11:55)
[2017-04-23] MEDS: SINGULAIR TAB 10 MG PO SCH (20:14)
[2017-04-23] MEDS: SNACK - Diabetic Appropriate PO SCH (20:15)
[2017-04-23] MEDS: HumuLIN R SUBCUT PRN (20:17)
[2017-04-24] MEDS: NS 1/2 1000 ML IV 1,000 ML IV SCH (00:35)
[2017-04-24] MEDS ORDERED: GLUCOPHAGE ONE ×2 (05:39→15:56)
[2017-04-24] MEDS: ZANAFLEX PO PRN (05:41)
[2017-04-24] MEDS: FERROUS SULFATE PO SCH ×2 (05:41→13:34)
[2017-04-24] MEDS: ZOFRAN TAB 4 MG SL PRN (05:42)
[2017-04-24] MEDS: NORCO 10/325 TAB PO PRN (05:42)
[2017-04-24 06:29] LABS: BASOPHILS % (AUTO) 0.1 % (0.2-1.0); EOSINOPHILS # (AUTO) 0.2 x10^3/uL (0.0-0.2); EOSINOPHILS % (AUTO) 1.3 % (0.9-2.9); HEMATOCRIT 32.5 % (42.0-54.0); HEMOGLOBIN 10.7 g/dL (13.5-18.0); LYMPHOCYTES # (AUTO) 5.6 X10^3/uL (1.3-2.9); LYMPHOCYTES % (AUTO) 39.3 % (21.0-51.0); MEAN CORPUSCULAR HEMOGLOBIN 26.6 pg (27.0-34.0); MEAN CORPUSCULAR HGB CONC 32.8 g/dL (33.0-35.0); MEAN CORPUSCULAR VOLUME 81.1 fL (80.0-100.0); MEAN PLATELET VOLUME 9.4 fL (7.4-11.0); MONOCYTES # (AUTO) 1.6 x10^3/uL (0.3-0.8); MONOCYTES % (AUTO) 10.9 % (0.0-13.0); NEUTROPHILS # (AUTO) 6.9 x10^3/uL (2.2-4.8); NEUTROPHILS % (AUTO) 48.4 % (42.0-75.0); PLATELET COUNT 324 X10^3/uL (150.0-450.0); RED BLOOD COUNT 4.01 X10^6/uL (4.7-6.0); RED CELL DISTRIBUTION WIDTH 15.7 % (11.6-16.5); WHITE BLOOD COUNT 14.2 X10^3/uL (3.6-10.0)
[2017-04-24 06:35] LABS: ALANINE AMINOTRANSFERASE 28 Units/L (12-78); ALBUMIN 3.2 g/dL (3.4-5.0); ALKALINE PHOSPHATASE 118 Units/L (46-116); ASPARTATE AMINO TRANSFERASE 30 Units/L (15-37); BLOOD UREA NITROGEN 30 mg/dL (7-18); CALCIUM 8.3 mg/dL (8.5-10.1); CARBON DIOXIDE 25.6 mmol/L (21-32); CHLORIDE 109 mmol/L (98-107); COR CA(FOR HYPOALB) 8.9 mg/dL (8.5-10.1); CREATININE 1.43 mg/dL (0.70-1.30); GLUCOSE 70 mg/dL (65-99); SODIUM 143 mmol/L (136-145); TOTAL PROTEIN 6.8 g/dL (6.4-8.2); eGFR BLACK RACES > 60 (>60); eGFR NON BLACK RACES 53 (>60)
[2017-04-24] MEDS: GLUCOPHAGE PO SCH ×2 (06:58→15:59)
[2017-04-24] MEDS ORDERED: ZOLOFT PO ONE (07:36)
[2017-04-24] MEDS: ZOLOFT PO SCH (08:00)
[2017-04-24] MEDS: LYRICA CAP 100 MG PO SCH (08:00)
[2017-04-24] MEDS: ROCEPHIN VIAL 1 GM 1 GM in NS 50 ML IV + SPIKE MINIBAG* 50 ML IV SCH (08:00)
[2017-04-24] MEDS: MICRO K EXTEN CAP 10 MEQ PO SCH (08:00)
[2017-04-24] MEDS: PLAVIX PO SCH (08:00)
[2017-04-24] MEDS: LOPRESSOR TAB 25 MG PO SCH (08:00)
[2017-04-24] MEDS: ROBITUSSIN DM PO SCH ×3 (08:00→16:00)
[2017-04-24] MEDS: ZANTAC PO SCH (08:10)
[2017-04-24] MEDS: CLARITIN PO SCH (08:11)
[2017-04-24] MEDS: COZAAR PO SCH (08:11)
[2017-04-24] MEDS: CHECK PATCH XX SCH (08:11)
[2017-04-24] MEDS: ASPIRIN EC 81 MG PO SCH (08:11)
[2017-04-24] MEDS: LASIX PO SCH (08:11)
[2017-04-24] MEDS: LIPITOR TAB 40 MG PO SCH (08:12)
[2017-04-24] MEDS: XOPENEX 1.25 MG/3 ML NEBULE NEB SCH ×3 (09:01→16:58)
--- NOTE | 2017-04-24 10:56 | MRI ---
HISTORY: Peripheral arterial disease with right lower extremity pain Study: MRA lower extremities without contrast Comparison: None Technique: [id number] and fresh blood imaging noncontrast MRA angiography of the iliofemoral run off was performed with MIP 3D reformatted post processing performed and reviewed. Findings: There is severe image degradation secondary to patient motion. The iliac arteries are not well seen, but there is asymmetric flow on the left as compared to the right suggesting inflow stenosis extend ing into the common femoral artery on the left. Additionally, there is loss of normal signal intensi ty along the proximal portions of the superficial femoral arteries bilaterally also suggesting high- grade stenosis with reconstitution distally. Again, there is asymmetric signal in the right poplitea l artery as compared to the left for which high-grade stenosis cannot be excluded. Evaluation of the trifurcation vessels is severely limited, but there appears to be diffuse atherosclerosis with mult ifocal high-grade occlusive or near occlusive disease not excluded. However, at least single-vessel runoff is suspected bilaterally. There is diffuse subcutaneous fat edema, right greater than left. T here are small hip and knee joint effusions. IMPRESSION: Severely limited exam with multiple regions of suspected high-grade stenosis as above. Some of the f indings may be artifactual secondary to motion. Findings could be correlated with arterial Doppler a nd TERRI. Ideally, findings would be correlated with CTA or conventional angiography. The patient repo rts shrimp/iodine allergy which typically does not elicit reaction with current contrast media, but the patient could be pre-medicated to ensure no contrast reaction. Other incidentals as above. Reported By:
[2017-04-24] MEDS: HumuLIN R SUBCUT PRN (15:58)
[2017-04-24 16:10] VITALS: BP 134/76
== END 2017-04-24 17:30 | DRG 203 ==
LOC: ICU 16:50 → OBSVTOIN 04-20 10:00
PROVIDERS: ADMIT Internal Medicine; ATTEND Internal Medicine
DX: J20.8 Acute bronchitis due to other specified organisms (principal); B96.29 Other Escherichia coli [E. coli] as the cause of diseases classified elsewhere; R55 Syncope and collapse; M54.5 Low back pain; R06.02 Shortness of breath; I48.0 Paroxysmal atrial fibrillation; E78.2 Mixed hyperlipidemia; K21.9 Gastro-esophageal reflux disease without esophagitis; I10 Essential (primary) hypertension; E11.65 Type 2 diabetes mellitus with hyperglycemia; F41.8 Other specified anxiety disorders; Z91.81 History of falling; R53.1 Weakness; Z79.01 Long term (current) use of anticoagulants; M47.816 Spondylosis without myelopathy or radiculopathy, lumbar region; Z86.79 Personal history of other diseases of the circulatory system; R26.89 Other abnormalities of gait and mobility; R10.2 Pelvic and perineal pain; R94.4 Abnormal results of kidney function studies; R74.8 Abnormal levels of other serum enzymes; Z87.01 Personal history of pneumonia (recurrent); R00.0 Tachycardia, unspecified; T48.6X5A Adverse effect of antiasthmatics, initial encounter; Y92.239 Unspecified place in hospital as the place of occurrence of the external cause; E04.1 Nontoxic single thyroid nodule
CPT/HCPCS: 36415; 71010; 71020; 71250; 72148; 72192; 73718; 76536; 80053; 81001; 82947; 85025; 87040; 87070; 87077; 87186; 87205; 97535; A4222; Q0177; S0181; G0378; J0456; J0696; J1630; J1815; J1956; J2270; J2920; J2930; J7613; Q0162